=== PATIENT | male | born 1965 | race Caucasian/White ===

== ENCOUNTER 2021-06-09 09:47 | Emergency (ER) | payer MEDICARE, MEDICAID ==
[~2021-06-09] VITALS: Ht 182 cm; Wt 167.0 kg
[~2021-06-09 09:47] MED LIST: ACHD5005 PO
--- OUTSIDE RECORDS SUMMARY | 2021-06-09 09:51 | XMS REPORT | Clinical Summary ---
Author Author [facility] Organization [facility] Address Unknown Phone Unavailable Care Team Providers Care Tentering Machine Feeder Name Role Phone Eric Guillen DO PCP Allergies Not on File Medications Not on file Active Problems Not on file Social History Date Tobacco Use Types Packs/Day Years Used Never Assessed Sex Assigned at Date Recorded Not on file Last Filed Vital Signs Not on file Plan of Treatment Health Maintenance Due Date Last Done Comments Hepatitis C Screen 1965 Td/Tdap# 1965 COVID-19 Vaccine (1) 1976 Colorectal Screening via 2014 Colonoscopy Zoster Vaccine# (1 of 2) 2014 Influenza Vaccine (#1) 2021 Pneumococcal Vaccine: Aged Out No longer eligib le based on patient's age to Pediatrics (0 to 5 Years) complete this topic and At-Risk Patients (6 to 64 Years) Results Not on filefrom Last 3 Months Insurance Type Payer Benefit Subscriber ID Effective Phone Address Plan / Dates Group Indemnity OTHER GOVERNMENT [facility] [id number] 2021- HEALTH Present Chuy Tavarez Personal/F Self 1965 [address] [place] (Home) [place] [id number] Chuy Tavarez Personal/F Self 1965 [address] [place] ([place]) [place] [id number] Advance Directives For more information, please contact: [phone] 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
--- OUTSIDE RECORDS SUMMARY | 2021-06-09 09:51 | XMS REPORT | Encounter Summary ---
Author Author [facility] Organization [facility] Address Unknown Phone Unavailable Care Team Providers Care Dye Penetrant Testing Technician Name Role Phone No Pcp, Na PCP Unavailable Tony Ruiz MD 21 Encounter Details Care Team Description Date Type Department 05/05/2021 Documentation Imaging: [facility] [address] [place] [id number] Social History Date Tobacco Use Types Packs/Day Years Used Quit: 08/27/2012 Former Smoker Smokeless Tobacco: Never Used Sex Assigned at Date Recorded Not on file documented as of this encounter Functional Status Date of Assessment Functional Status Response 08/14/2019 Does the patient have a hearing impairment: No 08/14/2019 Does the patient have a visual impairment: Yes 08/14/2019 Does the patient have impaired ambulation: Yes 08/14/2019 Does the patient have an activity of daily living No (ADL) impairment: 08/14/2019 Does the patient have an instrumental activity of No daily living (IADL) impairment: Date of Assessment Cognitive Status Response 08/14/2019 Does the patient have a cognitive impairment: No documented as of this encounter Plan of Treatment Not on filedocumented as of this encounter Visit Diagnoses Not on filedocumented in this encounter Additional Health Concerns Assessment Noted Time A fall risk assessment has been completed for the pat ient 01/17/2021 12:48 PM CDT documented as of this encounter
--- OUTSIDE RECORDS SUMMARY | 2021-06-09 09:51 | XMS REPORT | Encounter Summary ---
Author Author [facility] Organization [facility] Address Unknown Phone Unavailable Care Team Providers Care Teacher Citizenship Name Role Phone No Pcp, Na PCP Unavailable Tony Ruiz MD 21 Encounter Details Care Team Description Date Type Department 05/18/2021 Travel Social History Date Tobacco Use Types Packs/Day Years Used Quit: 08/27/2012 Former Smoker Smokeless Tobacco: Never Used Sex Assigned at Date Recorded Not on file Date Recorded COVID-19 Exposure Response 05/18/2021 12:55 PM CDT In the last month, have you been in contact with No / Unsure someone who was confirmed or suspected to have Coronavirus / COVID-19? documented as of this encounter Functional Status [...]
--- OUTSIDE RECORDS SUMMARY | 2021-06-09 09:51 | XMS REPORT | Encounter Summary ---
Author Author [facility] Organization [facility] Address Unknown Phone Unavailable Care Team Providers Care Alarm Security Or Surveillance Monitor Name Role Phone No Pcp, Na PCP Unavailable Tony Ruiz MD 21 Reason for Referral * Radiology Services (Routine) Referred By Contact Referred To Contact Status Reason Specialty Diagnoses / Procedures Da Rome MD [address] [place] [phone] Nuclear Med [address] [place], [place] [address]y. [address], [address] [place] [address] Authorized Radiology Diagnoses Neuroendocrine cancer (HCC) P rocedures NM PET NEUROENDOCRINE Electronically signed by Da Rome MD at Reason for Visit * Radiology Services (Routine) Referred By Contact Referred To Contact Status Reason Specialty Diagnoses / Procedures Da Rome MD [address] [place] [phone] Nuclear Med [address] [place], [place] [address]y. Level 1, [address] [place] [address] Authorized Radiology Diagnoses Neuroendocrine cancer (HCC) P rocedures NM PET NEUROENDOCRINE Encounter Details Care Team Description Date Type Department Da Rome MD [address] [place] [phone] 05/18/2021 Hospital Imaging, Nuclear Encounter Medicine: [address], [address] [place] [address] Social History Date Tobacco Use Types Packs/Day [...] impairment: No documented as of this encounter Medications at Time of Discharge Start Date End Date Medication Sig Dispensed Refills acetaminophen (TYLENOL) Take 325 mg 0 325 mg tablet by mouth every 4 hours as needed for Pain. albuterol sulfate (PROAIR Inhale by 0 RESPICLICK) 90 mouth into mcg/actuation aerosol the lungs inhaler three times daily as needed. aspirin EC 81 mg tablet Take 81 mg by 0 mouth daily. Take with food. atorvastatin (LIPITOR) 40 Take 40 mg by 0 mg tablet mouth daily. bisacodyl (CORRECTOL PO) Take 5 mg by 0 mouth twice daily. blood sugar diagnostic Use 1 strip 0 test strip as directed as Needed. cetirizine (ZYRTEC) 10 mg Take 10 mg by 0 tablet mouth every morning. coal tar (THERA-GEL TP) Apply 0 topically to affected area. duloxetine DR (CYMBALTA) Take 60 mg by 0 60 mg capsule mouth daily. ERGOCALCIFEROL (VITAMIN Take 5,000 0 D2) PO Units by mouth every 7 days. furosemide (LASIX) 40 mg Take 40 mg by 0 tablet mouth every morning. insulin glargine (LANTUS) Inject under 0 100 unit/mL vial the skin daily. Inject 55 units subcutaneousl y twice a day insulin NPH (NOVOLIN N) Inject under 0 100 unit/mL injection the skin twice daily. levothyroxine (SYNTHROID) Take 75 mcg 0 75 mcg tablet by mouth daily 30 minutes before breakfast. LISINOPRIL PO Take 40 mg by 0 mouth daily. metformin HCl (METFORMIN Take 1,000 mg 0 PO) by mouth twice daily. polyethylene glycol 3350 Take 17 g by 0 (MIRALAX) 17 g packet mouth daily. spironolactone Take 25 mg by 0 (ALDACTONE) 25 mg tablet mouth daily. Take with food. documented as of this encounter Discharge Disposition Code Departure Means Destination Disposition Home Home or Self Care documented in this encounter Plan of Treatment Not on filedocumented as of this encounter Procedures Comments Procedure Name Priority Date/Time Associated Diag nosis [place] PET NEUROENDOCRINE Routine 05/18/2021 Neuroend ocrine cancer 3:01 PM CDT (HCC) documented in this encounter Results * [place] PET NEUROENDOCRINE (05/18/2021 3:01 PM CDT) Specimen Impressions Performed At 1. No significant change in the appea edgar of a large neuroendocrine tumor of [facility] the pancreatic tail. 2. Redemonstration of a small tracer avid hepatic segment 8 metastasis. 3. Development of 2 additional tracer avid foci in the liver, which may represent new foci of hepatic metastati c disease, though could be secondary to differences in technique given interval change in tracer since prior examination. 4. Development of at least 2 pulmonar y nodules without tracer avidity. 5. No significant change in bilateral 11th rib osseous metastases. Krenning score = 4 Approved by Amara Gill M.D. on 021 5:51 PM By my electronic signature, I attest th at I have personally reviewed the images for this examination and formulated the interpretations and opinions expressed in this report Finalized by Graham Armstrong M.D. on 7:56 AM. Dictated by Amara Gill M.D. on 05/18/2021 4:20 PM. Narrative Performed At NC PET NEUROENDOCRINE [facility] Radiopharmaceutical: 4.3 mCi Cu-64 Dota kumar IV. Clinical Indication: Neuroendocrine can cer. Pancreatic neuroendocrine tumor. Technique: PET imaging was performed fr om skull to thighs. Low dose non-contrast CT imaging was performed for attenuatio n correction and localization purposes. Comparison: PET/CT from 01/14/2021. FINDINGS: Head/Neck: No tracer avid lesion(s). Chest: Development of left upper lobe ( index 316 CT image 107) and right middle lobe (index [address] image 128) pulmo nary nodules without tracer avidity. Abdomen/Pelvis: Large tracer avid pancr eatic tail mass demonstrating a maximum SUV of 100 (index 5[address] image 170) . Redemonstration of a small tracer avid hepatic segment 8 lesion demonstrating a maximum SUV of 43.5 (index [address] image 146, previously 29.6. Development of 2 additional tracer avid foci in the liver (index [address] image 163) and (index [address] image 161). Osseous Structures: Persistent tracer a vid focus within the posterior left 11th rib demonstrating a maximum SUV of 75.1 (index [address] image 166). Redemonstration of a small tracer avid focus in the right lateral 11th rib (index 632 and CT image 190). Additional CT Findings: Mild coronary a rtery calcification. Probable diffuse hepatic steatosis. Lumbar spinal fixati on hardware. Procedure Note Interface, Radiant Results - 05/19/2021 7:59 AM CDT NM PET NEUROENDOCRINE Radiopharmaceutical: 4.3 mCi Cu-64 Dotatate IV. Clinical Indication: Neuroendocrine cancer. Pancreatic neuroendocrine tumor. Technique: PET imaging was performed from skull to thighs. Low dose non-contrast CT imaging was performed for attenuation correction and localization purposes. Comparison: PET/CT from 01/14/2021. FINDINGS: Head/Neck: No tracer avid lesion(s). Chest: Development of left upper lobe (index 316 CT image 107) and right middle lobe (index [address] image 128) pulmonary nodules without tracer avidity. Abdomen/Pelvis: Large tracer avid pancreatic tail mass demonstrating a maximum SUV of 100 (index 5[address] image 170). Redemonstration of a small tracer avid hepatic segment 8 lesion demonstrating a maximum SUV of 43.5 (index [address] image 146, previously 29.6. Development of 2 additional tracer avid foci in the liver (index [address] image 163) and (index [address] image 161). Osseous Structures: Persistent tracer avid focus within the posterior left 11th rib demonstrating a maximum SUV of 75.1 (index [address] image 166). Redemonstration of a small tracer avid focus in the right lateral 11th rib (index 6[address] image 190). Additional CT Findings: Mild coronary artery calcification. Probable diffuse hepatic steatosis. Lumbar spinal fixation hardware. IMPRESSION 1. No significant change in the appeara nce of a large neuroendocrine tumor of the pancreatic tail. 2. Redemonstration of a small tracer av id hepatic segment 8 metastasis. 3. Development of 2 additional tracer a vid foci in the liver, which may represent new foci of hepatic metastatic disease, though could be secondary to differences in technique given interval change in tracer since prior examination. 4. Development of at least 2 pulmonary nodules without tracer avidity. 5. No significant change in bilateral 1 1th rib osseous metastases. Krenning score = 4 Approved by Amara Gill M.D. on 05/18/2021 5:51 PM By my electronic signature, I attest that I have personally reviewed the images for this examination and formulated the interpretations and opinions expressed in this report Finalized by Graham Armstrong M.D. on 05/19/2021 7:56 AM. Dictated by Amara Gill M.D. on 05/18/2021 4:20 PM. Performing Organization Address City/State/ZIP Code P brynn Number [facility] documented in this encounter Visit Diagnoses Diagnosis Neuroendocrine cancer (HCC) Malignant poorly differentiated neuroen docrine carcinoma, any site documented in this encounter Administered Medications Action Date Dose Rate Site Medication Order MAR Action 05/18/2021 1:14 PM CDT 4.3 millicuries RP DX Cu-64 copper dotatate (DETECTNET) Given injection 4 millicurie 4 millicurie, Intravenous, ONCE, 1 dose , On Sun05/18/21 at 1330 documented in this encounter Orders First Ordered Date Medications Ordered That Might Not Have Count Last Ordered Date Been Administered RP DX Cu-64 copper dotatate (DETECTNET) 1 05/18/2021 injection 4 millicurie documented in this encounter Additional Health Concerns Assessment Noted Time A fall risk assessment has been completed for the pat ient 01/17/2021 12:48 PM CDT documented as of this encounter
--- OUTSIDE RECORDS SUMMARY | 2021-06-09 09:51 | XMS REPORT | Clinical Summary ---
Author Author [facility] Organization [facility] Address Unknown Phone Unavailable Care Team Providers Care Mica Paster Name Role Phone No Pcp, Na PCP Unavailable Tony Ruiz MD 21 Source Comments Some departments are not documenting in the electronic medical record. If you d o not see the information that you expected, contact Release of Information in [facility] [employer] Information Management department at [phone] for further assistan ce in locating additional records.[facility] Allergies No Known Active Allergies Medications End Date Status Medication Sig Dispensed Refills Start Date Active blood sugar diagnostic Use 1 strip 0 test strip as directed as Needed. Active aspirin EC 81 mg tablet Take 81 mg by 0 mouth daily. Take with food. Active atorvastatin (LIPITOR) 40 Take 40 mg by 0 mg tablet mouth daily. Active bisacodyl (CORRECTOL PO) Take 5 mg by 0 mouth twice daily. Active duloxetine DR (CYMBALTA) Take 60 mg by 0 60 mg capsule mouth daily. Active insulin glargine (LANTUS) Inject under 0 100 unit/mL vial the skin daily. Inject 55 units subcutaneousl y twice a day Active furosemide (LASIX) 40 mg Take 40 mg by 0 tablet mouth every morning. Active levothyroxine (SYNTHROID) Take 75 mcg 0 75 mcg tablet by mouth daily 30 minutes before breakfast. Active LISINOPRIL PO Take 40 mg by 0 mouth daily. Active metformin HCl (METFORMIN Take 1,000 mg 0 PO) by mouth twice daily. Active polyethylene glycol 3350 Take 17 g by 0 (MIRALAX) 17 g packet mouth daily. Active insulin NPH (NOVOLIN N) Inject under 0 100 unit/mL injection the skin twice daily. Active albuterol sulfate (PROAIR Inhale by 0 RESPICLICK) 90 mouth into mcg/actuation aerosol the lungs inhaler three times daily as needed. Active spironolactone Take 25 mg by 0 (ALDACTONE) 25 mg tablet mouth daily. Take with food. Active coal tar (THERA-GEL TP) Apply 0 topically to affected area. Active acetaminophen (TYLENOL) Take 325 mg 0 325 mg tablet by mouth every 4 hours as needed for Pain. Active ERGOCALCIFEROL (VITAMIN Take 5,000 0 D2) PO Units by mouth every 7 days. Active cetirizine (ZYRTEC) 10 mg Take 10 mg by 0 tablet mouth every morning. Active Problems Problem Noted Date Neuroendocrine cancer 09/22/2019 Encounters Care Team Description Date Type Specialty Da Rome MD 05/18/2021 Hospital Radiology Encounter 05/18/2021 Travel 05/05/2021 Documentation Radiology from Last 3 Months Immunizations Name Administration Dates Next Due Medical History Medical History Date Comments DM (diabetes mellitus) (HCC) HTN (hypertension) Family History Medical History Relation Name Comments Cancer Maternal Aunt brain tumor Relation Name Status Comments Maternal Aunt Social History Date Tobacco Use Types Packs/Day Years Used Quit: 08/27/2012 Former Smoker Smokeless Tobacco: Never Used Sex Assigned at Date Recorded Not on file Date Recorded COVID-19 Exposure Response 05/18/2021 12:55 PM CDT In the last month, have you been in contact with No / Unsure someone who was confirmed or suspected to have Coronavirus / COVID-19? Last Filed Vital Signs Reading Time Taken Comments Vital Sign 151/78 10/01/2019 4:11 PM HELICOPTER REPAIRER Blood Pressure 57 10/01/2019 4:11 PM HELICOPTER REPAIRER Pulse 36.8 C (98.3 F) 09/17/2019 9:25 AM HELICOPTER REPAIRER Temperature 20 10/01/2019 4:11 PM HELICOPTER REPAIRER Respiratory Rate 100% 10/01/2019 4:11 PM HELICOPTER REPAIRER Oxygen Saturation - - Inhaled Oxygen Concentration 156.6 kg (345 lb 3.2 oz) 10/01/2019 4:11 PM HELICOPTER REPAIRER Weight 183.5 cm (6' 0.24") 10/01/2019 4:11 PM HELICOPTER REPAIRER Height 46.5 10/01/2019 4:11 PM HELICOPTER REPAIRER Body Mass Index Plan of Treatment Health Maintenance Due Date Last Done Comments MEDICARE ANNUAL WELLNESS 1965 VISIT HIV SCREENING 01/01/1980 DTAP/TDAP VACCINES (1 - 1982 Tdap) HEPATITIS C SCREENING 1982 PHYSICAL (COMPREHENSIVE) 1982 EXAM COLORECTAL CANCER 2014 SCREENING SHINGLES RECOMBINANT 2014 VACCINE (1 of 2) INFLUENZA VACCINE 03/27/2021 COVID-19 VACCINE Completed 12/03/2020, 11/04/2020 Procedures Comments Procedure Name Priority Date/Time Associated Diag nosis [place] PET NEUROENDOCRINE Routine 05/18/2021 Neuroend ocrine cancer 3:01 PM CDT (HCC) from Last 3 Months Results * [place] PET NEUROENDOCRINE (05/18/2021 3:01 PM CDT) Specimen [...] on 05/18/2021 4:20 PM. 

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
[2021-06-09 10:00] VITALS: BP 141/81
[2021-06-09 10:38] LABS: BASOPHILS % (AUTO) 0 % (0-10); EOSINOPHILS # (AUTO) 0.2 10^3/uL (0.0-0.3); EOSINOPHILS % (AUTO) 2 % (0-10); HEMATOCRIT 23 % (40-54); HEMOGLOBIN 7.5 g/dL (13.3-17.7); LYMPHOCYTES # (AUTO) 0.9 10^3/uL (1.0-4.0); LYMPHOCYTES % (AUTO) 12 % (12-44); MEAN CORPUSCULAR HEMOGLOBIN 27 pg (25-34); MEAN CORPUSCULAR HGB CONC 32 g/dL (32-36); MEAN CORPUSCULAR VOLUME 84 fL (80-99); MEAN PLATELET VOLUME 10.6 fL (9.0-12.2); MONOCYTES # (AUTO) 0.5 10^3/uL (0.0-1.0); MONOCYTES % (AUTO) 7 % (0-12); NEUTROPHILS # (AUTO) 6.1 10^3/uL (1.8-7.8); NEUTROPHILS % (AUTO) 78 % (42-75); PLATELET COUNT 245 10^3/uL (130-400); WHITE BLOOD COUNT 7.8 10^3/uL (4.3-11.0)
--- NOTE | 2021-06-09 10:52 | Diagnostic Imaging Report ---
CLINICAL INDICATION: Patient with left knee pain and swelling. No known injury. Patient cannot bear weight. EXAM: X-ray of the left knee, three views. COMPARISON: None. FINDINGS: There is no acute lumbar spine fracture or dislocation. There is a left knee effusion and swelling adjacent to the left knee. There is hypertrophic patellar spur at the patellar ligament region adjacent to the tibial tuberosity in the region of the patellar ligament. There is hypertrophic spurring involving the tibial spine. There is also chronic calcification. There are small spurs involving the medial and lateral compartments. There is a sclerotic area across the tibial metaphysis which may be related to sclerosis of the physis. IMPRESSION: 1: There is no acute fracture or dislocation. 2: There is nonspecific left knee effusion and swelling about the knee. 3: There is degenerative disease, most pronounced involving the patella and tibial spine regions in the area of the patellar ligament, which may be from remote traumatic changes. Dictated by: Dictated on workstation # [id number]
[2021-06-09 10:54] LABS: ERYTHROCYTE SEDIMENTATION RATE > 140 MM/HR (0-30)
[2021-06-09 10:58] LABS: CALCIUM 7.3 MG/DL (8.5-10.1)
[2021-06-09 11:02] LABS: CREATININE SERUM 5.4 MG/DL (0.60-1.30)
[2021-06-09 11:05] LABS: URIC ACID 9.8 MG/DL (2.6-7.2)
[2021-06-09] MEDS ORDERED: COLCHICINE 0.6 MG (COLCRYS) TABLET PO STA (11:19)
[2021-06-09] MEDS ORDERED: LIDOCAINE 1% INJ 20 ML 20 ML VIAL ONE (11:56)
[2021-06-09] MEDS ORDERED: HYDROcodone/APAP 5 MG/325 MG (LORTAB) TAB ONE (12:43)
[2021-06-09] MEDS ORDERED: HYDROcodone/APAP 5 MG/325 MG (LORTAB) TAB PO ONE (12:45)
[2021-06-09] MEDS ORDERED: ONDANSETRON 4 MG (ZOFRAN) ORAL DISSOLVE TAB SL ONE (13:15)
[2021-06-09 13:32] LABS: BODY FLUID APPEARENCE MKD CLDY; BODY FLUID COLOR PALE YELLOW; BODY FLUID SOURCE SYNOVIAL
[2021-06-09 14:08] LABS: BODY FLUID RBC COUNT 100 /uL; BODY FLUID WBC TOTAL COUNT 12525 /uL
--- NOTE | 2021-06-09 14:11 | ED General ---
General Chief Complaint: Lower Extremity Stated Complaint: L KNEE SWOLLEN/HOT Nursing Triage Note: PT C/O LEFT KNEE PAIN X FEW WEEKS. REPORTS IT HIS HOT TO TOUCH AND PT IS UNABLE TO BEAR WEIGHT. DENIES FEVER OR ANY OTHER INJURY. Source of Information: Patient Exam Limitations: No Limitations History of Present Illness Date Seen by Provider: Jun 09, 2021 Time Seen by Provider: 10:00 Initial Comments This 55-year-old gentleman presents to the emergency room with complaints of left knee pain and swelling for 3 weeks, markedly worsening over the last 3 days. He denies any recent or prior traumatic injury. It is warm to the touch but he denies any fever. He has never had this problem before and denies any history of gout. He does have history of renal failure. He also takes oral chemo therapy medications for pancreatic cancer. He has been taking Tylenol for the pain which has not been effective. He is having extreme difficulty ambulating due to the pain. Allergies and Home Medications Allergies Coded Allergies: No Known Drug Allergies (Unverified , 05/01/20) Patient Home Medication List Home Medication List Reviewed: Yes Hydrocodone/Acetaminophen (Hydrocodone-Acetamin 5-325 mg) 1 Each Tablet, 1 EACH PO Q4-6 HOURS PRN for PAIN Prescribed by: AD MOODY on 05/01/20 309 Hydrocodone/Acetaminophen (Hydrocodone-Acetamin 5-325 mg) 1 Each Tablet, 0.5-1 TAB PO Q4H PRN for PAIN-MODERATE (5-7) Prescribed by: TAMIKA JOHNS on 06/09/21 1437 Review of Systems Review of Systems Constitutional: no symptoms reported EENTM: no symptoms reported Respiratory: no symptoms reported Cardiovascular: no symptoms reported Gastrointestinal: no symptoms reported Genitourinary: no symptoms reported Musculoskeletal: see HPI Skin: no symptoms reported Psychiatric/Neurological: No Symptoms Reported Hematologic/Lymphatic: No Symptoms Reported Immunological/Allergic: no symptoms reported Past Tmadxpc-Kkvtfh-Yuwalt Hx Patient Social History Tobacco Use?: Yes Tobacco type used: Cigarettes Smoking Status: Light Tobacco Smoker Substance use?: No Alcohol Use?: Yes Alcohol type: Beer Pt feels they are or have been: No Immunizations Up To Date Influenza Vaccine Up-to-Date: Yes; Up-to-Date Second COVID19 Vaccination Cliff: BOTH COVID19 Vaccine Kelp Gatherer: MODERNWendy Past Medical History Surgery/Hospitalization HX: IDDM, PANCREATIC CANCER Surgeries: Yes (LUMBAR SPINE SURGERY WITH HARDWARE) Orthopedic Respiratory: Yes Sleep Apnea Currently Using CPAP: Yes (BUT NOT ALL THE TIME) Currently Using BIPAP: No Cardiac: Yes High Cholesterol, Hypertension Neurological: No Genitourinary: Yes (CHRONIC RENAL FAILURE/INSUFFICIENCY) Renal Failure Gastrointestinal: Yes (PANCREATIC CANCER-STATES WAS DX IN HALF-WAY 04/2019) Musculoskeletal: Yes Chronic Back Pain Endocrine: Yes (MORBID OBESITY; IDDM) Diabetes, Insulin dep HEENT: No Cancer: Yes (DX 04/2019 WHILE IN HALF-WAY) Pancreatic Did You Recieve Any Treatments: Yes What Type of Treatment Did You: Chemotherapy Integumentary: No Blood Disorders: No Physical Exam Vital Signs Vital Signs - First Documented 06/09/21 10:00 Temp 37.4 Pulse 70 Resp 18 B/P (MAP) 141/81 (101) Pulse Ox 95 O2 Delivery Room Air Capillary Refill : Less Than 3 Seconds Height, Weight, BMI Height: '" Weight: lbs. oz. kg; 50.00 BMI Method: General Appearance: WD/WN, Moderate Distress, Obese HEENT: PERRL/EOMI, Normal ENT Inspection Neck: Normal Inspection Respiratory: Lungs Clear, Normal Breath Sounds, No Accessory Muscle Use Cardiovascular: Regular Rate, Rhythm, No Murmur Gastrointestinal: Non Tender, Soft Extremity: Other (Significant effusion about the left knee with warmth to the touch. No visible erythema. Significant pain with weightbearing and range of motion.) Neurologic/Psychiatric: Alert, Oriented x3, No Motor/Sensory Deficits, Normal Mood/Affect Skin: Normal Color, Warm/Dry Procedures/Interventions Patient Education: Explained Benefits, Explained Risks, Pt. Ack. Understanding Patient History: Heavy Snoring, Sleep Apnea Breath Sounds per Auscultation: Clear Heart Sounds per Auscultation: Regular Airway Exam: Mouth opens >2 fingers, Neck Full Range of Motion, Visulation of Uvula Arthrocentesis of the left knee Informed consent was obtained after discussing risks and benefits of arthrocentesis. Risks included bleeding, pain, and infection. Benefits included ability to alleviate pressure from the knee and evaluate synovial fluid by microscopy and culture. Patient agreed to the procedure. A superior lateral approach was used. Skin was indented with a hypodermic needle. Skin was cleaned with alcohol wipes and an insulin syringe was used to inject approximately 1 mL of lidocaine under the skin surface. Skin was then prepped with Betadine. Using sterile technique an 18-gauge needle was inserted into the joint space and approximately 110 mL of cloudy synovial fluid was aspirated from the joint. I continue to aspirate until no further fluid could be obtained. Patient tolerated the procedure well. Fluid was sent to the lab for analysis. Progress/Results/Core Measures Suspected Sepsis SIRS Temperature: Pulse: 70 Respiratory Rate: 18 Laboratory Tests 06/09/21 10:32: White Blood Count 7.8 Blood Pressure 141 /81 Mean: 101 Laboratory Tests 06/09/21 10:32: Creatinine 5.40H, Platelet Count 245 Results/Orders Lab Results Laboratory Tests Test 06/09/21 10:32 06/09/21 12:50 06/09/21 13:05 06/09/21 13:28 Range/Units White Blood Count 7.8 4.3-11.0 10^3/uL Red Blood Count 2.79 L 4.30-5.52 10^6/uL Hemoglobin 7.5 L 13.3-17.7 g/dL Hematocrit 23 L 40-54 % Mean Corpuscular Volume 84 80-99 fL Mean Corpuscular Hemoglobin 27 25-34 pg Mean Corpuscular Hemoglobin Concent 32 32-36 g/dL Red Cell Distribution Width 15.1 H 10.0-14.5 % Platelet Count 245 130-400 10^3/uL Mean Platelet Volume 10.6 9.0-12.2 fL Immature Granulocyte % (Auto) 1 % Neutrophils (%) (Auto) 78 H 42-75 % Lymphocytes (%) (Auto) 12 12-44 % Monocytes (%) (Auto) 7 0-12 % Eosinophils (%) (Auto) 2 0-10 % Basophils (%) (Auto) 0 0-10 % Neutrophils # (Auto) 6.1 1.8-7.8 10^3/uL Lymphocytes # (Auto) 0.9 L 1.0-4.0 10^3/uL Monocytes # (Auto) 0.5 0.0-1.0 10^3/uL Eosinophils # (Auto) 0.2 0.0-0.3 10^3/uL Basophils # (Auto) 0.0 0.0-0.1 10^3/uL Immature Granulocyte # (Auto) 0.0 0.0-0.1 10^3/uL Erythrocyte Sedimentation Rate > 140 H 0-30 MM/HR Sodium Level 140 135-145 MMOL/L Potassium Level 4.0 3.6-5.0 MMOL/L Chloride Level 108 H 98-107 MMOL/L Carbon Dioxide Level 15 L 21-32 MMOL/L Anion Gap 17 H 5-14 MMOL/L Blood Urea Nitrogen 54 H 7-18 MG/DL Creatinine 5.40 H 0.60-1.30 MG/DL Estimat Glomerular Filtration Rate 11 BUN/Creatinine Ratio 10 Glucose Level 81 70-105 MG/DL Uric Acid 9.8 H 2.6-7.2 MG/DL Calcium Level 7.3 L 8.5-10.1 MG/DL C-Reactive Protein High Sensitivity 3.84 H 0.00-0.50 MG/DL Body Fluid Source SYNOVIAL Body Fluid Color PALE YELLOW Body Fluid Appearance MKD CLDY Body Fluid WBC 54996 /uL Body Fluid RBC 100 /uL Body Fluid Polynuclear WBCs 96 % Body Fluid Mononuclear WBCs 0 % Body Fluid Lymphocytes 4 % Body Fluid Eosinophils 0 % Body Fluid Other Cells 0 % Body Fluid Crystals NOT SEEN Glucometer 37 *L 51 *L 70-110 MG/DL Test 06/09/21 14:11 Range/Units Glucometer 88 70-110 MG/DL My Orders Orders - TAMIKA BECKER MD Basic Metabolic Panel (06/09/21 10:08) Cbc With Automated Diff (06/09/21 10:08) Hs C Reactive Protein (06/09/21 10:08) Erythrocyte Sedimentation Rate (06/09/21 10:08) Uric Acid (06/09/21 10:08) Knee, Left, 3 Views (06/09/21 10:10) Colchicine Tablet (Colcrys Tablet) (06/09/21 11:19) Body Fluid Cell Count (06/09/21 11:41) Body Fluid Culture (06/09/21 11:41) Crystals,Body Fluid (06/09/21 11:41) Lidocaine 1% Inj 20 Ml (Xylocaine 1% Inj (06/09/21 11:56) Hydrocodone/Apap 5/325 Tablet (Lortab 5 (06/09/21 12:45) Hydrocodone/Apap 5/325 Tablet (Lortab 5 (06/09/21 12:43) Ondansetron Oral Dissolve Tab (Zofran (06/09/21 13:15) Accucheck Stat ONCE (06/09/21 13:01) Accucheck Stat ONCE (06/09/21 13:54) Accucheck Stat ONCE (06/09/21 13:54) Medications Given in ED Current Medications Medications Dose Ordered Sig/Zoe Route Start Time Stop Time Status Last Admin Dose Admin Acetaminophen/ Hydrocodone Bitart 1 ea ONCE ONCE PO 06/09/21 12:45 06/09/21 12:46 DC 06/09/21 12:47 1 EA Lidocaine HCl 20 ml STK-MED ONCE .ROUTE 06/09/21 11:56 06/09/21 11:59 DC 06/09/21 12:42 10 ML Vital Signs/I&O 06/09/21 10:00 Temp 37.4 Pulse 70 Resp 18 B/P (MAP) 141/81 (101) Pulse Ox 95 O2 Delivery Room Air Capillary Refill : Less Than 3 Seconds Blood Pressure Mean: 101 Progress Note : Progress Note Labs were obtained revealing elevated ESR and uric acid. Gout was suspected. Colchicine was given along with a dose of hydrocodone. I discussed risks and benefits of aspirating the knee. Patient agreed and arthrocentesis was p erformed yielding approximately 110 mL of cloudy synovial fluid. Fluid appeared aseptic by cell count and microscopy. No crystals were identified in the synovial fluid. The aseptic fluid without crystals would suggest the effusion was due to arthritic inflammation or some other type of inflammatory condition rather than gout or infection. Patient became hypoglycemic as he had not eaten prior to coming to the ER. His blood sugar was corrected with food and drink. On evaluation of his blood work I was concerned about his worsening renal function and anemia. This was discussed with Dr. Bertha Adames. She will follow up with him in the clinic. Patient has noted some dark stools recently but no viky melena or source of bleeding. See discharge instructions for further discussion. Diagnostic Imaging Diagonstic Imaging: Xray Plain Films/CT/US/NM/MRI: knee Comments NAME: DIANA NEGRON [facility] REC#: [id number] PT STATUS: REG ER : 1965 PHYSICIAN: TAMIKA BECKER MD ADMIT DATE: 06/09/21/ER Draft Date of Exam:06/09/21 KNEE, LEFT, 3 VIEWS CLINICAL INDICATION: Patient with left knee pain and swelling. No known injury. Patient cannot bear weight. EXAM: X-ray of the left knee, three views. COMPARISON: None. FINDINGS: There is no acute lumbar spine fracture or dislocation. There is a left knee effusion and swelling adjacent to the left knee. There is hypertrophic patellar spur at the patellar ligament region adjacent to the tibial tuberosity in the region of the patellar ligament. There is hypertrophic spurring involving the tibial spine. There is also chronic calcification. There are small spurs involving the medial and lateral compartments. There is a sclerotic area across the tibial metaphysis which may be related to sclerosis of the physis. IMPRESSION: 1: There is no acute fracture or dislocation. 2: There is nonspecific left knee effusion and swelling about the knee. 3: There is degenerative disease, most pronounced involving the patella and tibial spine regions in the area of the patellar ligament, which may be from remote traumatic changes. Dictated on workstation # [id number] Dict: 06/09/21 1044 Trans: 06/09/21 1051 [id number] Interpreted by: DYAN SHANKS MD Departure Impression Primary Impression: Effusion, left knee Additional Impressions: Left knee pain Qualified Codes: M25.562 - Pain in left knee Acute on chronic renal failure Anemia Qualified Codes: D64.9 - Anemia, unspecified Hypoglycemia Disposition: 01 HOME, SELF-CARE Condition: Improved Departure-Patient Inst. Decision time for Depature: 14:34 Ref[facility]: [facility] (PCP/Family) Primary Care Physician PHILIP SALINAS MD, TERRY D MD ZAFUTA, MICHAEL P MD Patient Instructions: Chronic Kidney Disease, Knee Pain Add. Discharge Instructions: Follow-up with your kidney specialist and your primary care provider soon as possible. Please call today to schedule appointments and arrange follow-up lab work. Drink plenty of water to stay well-hydrated. Elevation and compressive wrapping of your knee may be helpful in reducing pain and swelling. Use hydrocodone sparingly as prescribed for further treatment of the pain. It may be beneficial for you to see an rfid specialist. A list of orthopedists is provided below. Call with questions or concerns. Return to the ER if you have worsening symptoms. All discharge instructions reviewed with patient and/or family. Voiced understanding. Scripts Hydrocodone/Acetaminophen (Hydrocodone-Acetamin 5-325 mg) 1 Each Tablet 0.5-1 TAB PO Q4H PRN for PAIN-MODERATE (5-7), #20 TAB Prov: TAMIKA BECKER MD 06/09/21 Copy Copies To 1: KYARA UGALDE JOSHUA T MD Jun 09, 2021 14:11
[2021-06-09 14:16] LABS: BF OTHER CELLS 0 %; LYMPHOCYTES,BODY FLUID 4 %
[2021-06-09] MEDS ORDERED: ACHD5005 PO (14:37)
== END 2021-06-09 14:55 | disposition home or self-care (01) ==
LOC: EDUNIT# 09:47 → ER 09:48
DX: M25.462 Effusion, left knee (principal); E11.22 Type 2 diabetes mellitus with diabetic chronic kidney disease; I12.9 Hypertensive chronic kidney disease with stage 1 through stage 4 chronic kidney disease, or unspecified chronic kidney disease; N18.9 Chronic kidney disease, unspecified; E11.649 Type 2 diabetes mellitus with hypoglycemia without coma; D64.9 Anemia, unspecified; E66.01 Morbid (severe) obesity due to excess calories; G47.30 Sleep apnea, unspecified; G89.29 Other chronic pain; M54.9 Dorsalgia, unspecified; F17.210 Nicotine dependence, cigarettes, uncomplicated; Z68.43 Body mass index [BMI] 50.0-59.9, adult; Z79.891 Long term (current) use of opiate analgesic
CPT/HCPCS: 36415; 73562; 80048; 82947; 84550; 85025; 85652; 86141; 87070; 87205; 89051; 89060

== ENCOUNTER 2021-12-26 05:42 | Outpatient (CLI) | payer MEDICARE, MEDICAID ==
[~2021-12-26] VITALS: Ht 185.5 cm; Wt 162.7 kg
[2021-12-28] MEDS ORDERED: ATOR40TA70 PO (11:52)
[2021-12-28] MEDS ORDERED: ALB0.5V INH (11:52)
[2021-12-28] MEDS ORDERED: TORS20TA3 PO (12:05)
[2021-12-28] MEDS ORDERED: DULO60CA59 PO (12:05)
[2021-12-28] MEDS ORDERED: ACET325C7 PO (12:05)
[2021-12-28] MEDS ORDERED: HYDR-3924 PO (12:05)
[2021-12-28] MEDS ORDERED: LEVO75CA5 PO (12:05)
[2021-12-28] MEDS ORDERED: CETI10TA17 PO (12:05)
[2021-12-28] MEDS ORDERED: CARV25TA PO (12:05)
[2021-12-28] MEDS ORDERED: INSU100V42 SQ ×2 (12:05)
[2021-12-28] MEDS ORDERED: SPIR25TA PO (12:05)
[2021-12-28] MEDS ORDERED: VERA180T55 PO (12:05)
[2021-12-28] MEDS ORDERED: HYDR-700 PO (12:05)
[2021-12-28] MEDS ORDERED: CALC667T5 PO (12:05)
[2021-12-28] MEDS ORDERED: ERGO1250 PO (12:05)
[2021-12-28] MEDS ORDERED: ISOS30TA8 PO (12:05)
[2021-12-28] MEDS ORDERED: ASPI81TA16 PO (12:05)
[2021-12-30] MEDS ORDERED: ACHD5005 PO (12:19)
== END 2021-12-28 12:10 | disposition home or self-care (01) ==
LOC: PREOP 05:42
PROVIDERS: ATTEND Surgery
DX: Z01.818 Encounter for other preprocedural examination (principal)

== ENCOUNTER 2021-12-30 06:31 | Day surgery (SDC) | payer MEDICARE, MEDICAID ==
[~2021-12-30] VITALS: Ht 186 cm; Wt 162.7 kg
[2021-12-30] VITALS (11 sets, daily range): BP systolic 117–157; BP diastolic 65–91
[~2021-12-30 06:31] MED LIST changes: +ACET325C7 PO; +ALB0.5V INH; +ASPI81TA16 PO; +ATOR40TA70 PO; +CALC667T5 PO; +CARV25TA PO; +CETI10TA17 PO; +DULO60CA59 PO; +ERGO1250 PO; +HYDR-3924 PO; +HYDR-700 PO; +INSU100V42 SQ; +ISOS30TA8 PO; +LEVO75CA5 PO; +SPIR25TA PO; +TORS20TA3 PO; +VERA180T55 PO
[2021-12-30] MEDS ORDERED: fentaNYL INJ 100 MCG/2 ML AMP ONE (07:01)
[2021-12-30] MEDS ORDERED: ROCURONIUM 50 MG/5 ML (ZEMURON) VIAL IV ONE (07:01)
[2021-12-30] MEDS ORDERED: ONDANSETRON 4 MG/2 ML (SDV) Z0FRAN ONE (07:01)
[2021-12-30] MEDS ORDERED: proPOfol 200 MG/20 ML (DIPRIVAN) VIAL IV ONE (07:01)
[2021-12-30] MEDS ORDERED: LIDOCAINE PF 2% 5 ML (XYLOCAINE) VIAL ONE (07:01)
[2021-12-30] MEDS ORDERED: MIDAZOLAM 2 MG/2 ML (VERSED) VIAL ONE (07:01)
[2021-12-30] MEDS ORDERED: LIDOCAINE/EPI 2% 1:100,00 (XYLOCAINE) 20 ML VIAL ONE (07:21)
[2021-12-30] MEDS ORDERED: LACTATED RINGERS 1,000 ML IV PRN (07:30)
[2021-12-30] MEDS ORDERED: ceFAZolin INJECTION 3,000 MG in NS (IVPB) 100 ML IV ONE (07:30)
[2021-12-30] MEDS ORDERED: CISATRACURIUM 2MG/ML (NIMBEX) 10ML VIAL IV ONE (07:45)
[2021-12-30] MEDS ORDERED: HEParin (CENTRAL IV FLUSH) 500 UNIT/5 ML SYR ONE (08:02)
--- NOTE | 2021-12-30 08:09 | Progress Note-Pre Operative ---
Pre-Operative Progress Note H&P Reviewed The H&P was reviewed, patient examined and no changes noted. Date Seen by Provider: December 30, 2021 Time Seen by Provider: 08:09 Date H&P Reviewed: December 30, 2021 Time H&P Reviewed: 08:09 Pre-Operative Diagnosis: renal failure ROSE ALLISON DO December 30, 2021 08:09
[2021-12-30 08:14] LABS: CALCIUM 8.7 MG/DL (8.5-10.1); CREATININE SERUM 5.57 MG/DL (0.60-1.30); POTASSIUM 4.1 MMOL/L (3.6-5.0)
[2021-12-30] MEDS ORDERED: GLYCOPYRROLATE 0.2 MG/ML (ROBINUL) 2 ML VIAL ONE (09:27)
[2021-12-30] MEDS ORDERED: NEOSTIGMINE 3 MG/3 ML VIAL ONE (09:27)
[2021-12-30] MEDS ORDERED: SEVOFLURANE (ULTANE) 15 ML INHAL SOLN ONE (09:47)
[2021-12-30] MEDS ORDERED: fentaNYL INJ 100 MCG/2 ML AMP IVP ONE (10:15)
[2021-12-30] MEDS ORDERED: ONDANSETRON 4 MG/2 ML (SDV) Z0FRAN IVP PRN (10:15)
[2021-12-30] MEDS ORDERED: ACHD5005 PO (12:19)
--- NOTE | 2021-12-30 12:22 | Discharge Inst-Simple/Standard ---
Discharge Inst-Standard Discharge Medications New, Converted or Re-Newed RX: Transmitted to Pharmacy Patient Instructions/Follow Up Plan of Care/Instructions/FU: Need to see [facility] dialysis nurse on Sunday. No showering or soaking until then. You may do towel bath. [place]- 2 weeks. Activity as Tolerated: No Discharge Diet: Regular Diet Other Inst to Patient Follow up Appt: Make appointment for 2 week. Instructions: No lifting greater than 10 pounds. No strenuous activity. May shower in 24 hours, no tub bath or soaking. Use incentive spirometer at home as directed. No Smoking Skin/Wound Care: You have special glue over your incision that will fall off on it's own. Need to see [facility] dialysis nurse on Sunday. No showering or soaking until then. You may do towel bath. Symptoms to Report: Appetite Changes, Extremity Discoloration, Numbness/Tingling, Swelling Increased, Bleeding Excessive, Eyesight Changes, Pain Increased, Urine Color Change, Constipation(Persistent), Fever over 101 degree F, Pain/Pressure in chest, Urinating Difficulty, Cough Up/Vomit Blood, Heart Beat Irreg/Pounding, Pain/Pressure in jaw, Vaginal Bleeding Increase, Cramps in feet or legs, Lightheadedness, Pain/Pressure in shoulder, Diarrhea(Persistent), Memory Changes Suddenly, Questions/Concerns, Weight gain consecutive days, Dizziness/Fainting, Nausea/Vomiting, Shortness of Breath, Weight gain over 2 pounds If questions or concerns contact your physician Or seek help at emergency department. ROSE VALENCIA DO December 30, 2021 12:22
--- NOTE | 2021-12-30 14:55 | Anesthesia-General Post-Op ---
General Patient Condition Mental Status/LOC: Same as Preop Cardiovascular: Satisfactory Nausea/Vomiting: Absent Respiratory: Satisfactory Pain: Controlled Complications: Absent Post Op Complications Complications None Follow Up Care/Instructions Patient Instructions None needed. Anesthesia/Patient Condition Patient Condition Patient was doing well after the procedure with no complaints, stable vital signs, no apparent adverse anesthesia problems. ENRIQUE SIFUENTES DO December 30, 2021 14:55
--- NOTE | 2021-12-30 23:19 | OPERATIVE REPORT ---
DATE OF SERVICE: 12/30/2021 PREOPERATIVE DIAGNOSIS: Renal failure. POSTOPERATIVE DIAGNOSIS: Renal failure. PROCEDURE: Laparoscopic peritoneal dialysis catheter placement. SURGEON: Rose Valencia DO SILK CREPE MACHINE OPERATOR: Dr. Godoy, assisted in retraction, dissection and closure. ANESTHESIA: General. ESTIMATED BLOOD LOSS: Minimal. COMPLICATIONS: None. INDICATIONS: The patient is a 55-year-old male needing peritoneal dialysis and wishes to proceed with placement of peritoneal dialysis catheter. He understands risks and benefits of procedure and wishes to proceed. Consent was signed in the chart. DESCRIPTION OF PROCEDURE: The patient was taken to the operating suite, was prepped and draped in sterile fashion. Surgical pause was performed in the epigastric area midline. Local anesthetic was infiltrated. A #11 blade scalpel was used to make a small skin incision. Cautery was used to dissect down to the fascia, which was scored and divided, and the abdomen was entered. An 0 Vicryl was placed in a [id number] fashion for closure at the end of the case. The balloon trocar was inserted, and pneumoperitoneum was achieved. Under direct visualization of the laparoscope, an 8 mm robotic trocar was inserted into the left of the umbilicus and a 45-degree angle aiming down towards the pelvis. Once this was placed, the patient was placed in Trendelenburg, exposing the pelvis. Peritoneal dialysis catheter was then inserted down into the pelvis through the trocar and the stylet was removed as the catheter was advanced. The cuff was visualized within the abdomen. The trocar was removed. The catheter was then retracted back until the cuff was within the rectus muscle. This was then cut to length and stab incision was made in the left upper quadrant, which was then dissected down through. The catheter was cut to length and secured to the extension using the titanium connector, which was then also secured using 0 silk suture and then this was then tunneled up through the new stab incision. Using was exited on the left upper abdomen. The connector was then placed. The catheter was then flushed and reji saline without any difficulty. A 250 mL of saline was left down the pelvis for floating the catheter. The abdomen was then desufflated. The trocar was removed. The 0 Vicryl was then tied closing the 12 mm fascial defect. The skin incisions were closed using 4-0 Monocryl in a subcuticular fashion. Skin Affix was placed over the incisions. The patient tolerated procedure well without any complications. He was taken to recovery room in stable condition. Job ID: [id number] DocumentID: [id number] Dictated Date: 12/30/2021 16:30:25 Briar Cutter Date: 12/30/2021 23:19:03 Dictated By: ROSE VALENCIA DO
== END 2021-12-30 13:30 | disposition home or self-care (01) ==
LOC: SDC 06:31
PROVIDERS: ATTEND Surgery
DX: N18.6 End stage renal disease (principal); C7A.8 Other malignant neuroendocrine tumors; E66.01 Morbid (severe) obesity due to excess calories; G47.33 Obstructive sleep apnea (adult) (pediatric); F17.210 Nicotine dependence, cigarettes, uncomplicated; Z99.89 Dependence on other enabling machines and devices; Z68.42 Body mass index [BMI] 45.0-49.9, adult; Z99.2 Dependence on renal dialysis
CPT/HCPCS: 49324; 80048; 87081; C1750; 36415

== ENCOUNTER 2023-06-13 05:34 | Outpatient (CLI) | payer MEDICARE, MEDICAID ==
[~2023-06-13] VITALS: Ht 182.9 cm; Wt 123.4 kg
[2023-06-13] MEDS ORDERED: CALC0.5C11 PO (11:06)
[2023-06-13] MEDS ORDERED: QUET50TA23 PO (11:06)
[2023-06-13] MEDS ORDERED: SEVE800T13 PO (11:06)
[2023-06-13] MEDS ORDERED: DOCU-26 PO (11:06)
[2023-06-13] MEDS ORDERED: GLUC1AUT SQ (11:06)
[2023-06-13] MEDS ORDERED: ROPI1TAB46 PO (11:06)
[2023-06-13] MEDS ORDERED: OXYC10TA7 PO (11:06)
[2023-06-13] MEDS ORDERED: PROC10TA15 PO (11:06)
[2023-06-13] MEDS ORDERED: ISOS30TA8 PO (11:06)
[2023-06-13] MEDS ORDERED: MORPHINE 100MG/5ML PO (11:06)
[2023-06-13] MEDS ORDERED: LORA-404 PO (11:06)
== END 2023-06-13 11:38 | disposition home or self-care (01) ==
LOC: PREOP 05:34
PROVIDERS: ATTEND Surgery
DX: Z01.818 Encounter for other preprocedural examination (principal)

== ENCOUNTER 2023-06-20 06:57 | Day surgery (SDC) | payer MEDICARE, MEDICAID ==
[~2023-06-20] VITALS: Ht 182 cm; Wt 123.4 kg
[2023-06-20] VITALS (12 sets, daily range): BP systolic 95–166; BP diastolic 50–100
[~2023-06-20 06:57] MED LIST changes: +CALC0.5C11 PO; +DOCU-26 PO; +GLUC1AUT SQ; +LORA-404 PO; +MORPHINE 100MG/5ML PO; +OXYC10TA7 PO; +PROC10TA15 PO; +QUET50TA23 PO; +ROPI1TAB46 PO; +SEVE800T13 PO
[2023-06-20] MEDS ORDERED: LIDOCAINE 2% w/EPI 1:100,000 20 ML VIAL ONE (07:10)
[2023-06-20] MEDS ORDERED: ceFAZolin INJECTION 2,000 MG in NS (IVPB) 50 ML 50 ML IV ONE (07:15)
[2023-06-20] MEDS ORDERED: LACTATED RINGERS 1,000 ML 1,000 ML IV PRN (07:15)
--- NOTE | 2023-06-20 07:41 | Progress Note-Pre Operative ---
Pre-Operative Progress Note Date H&P Reviewed: Jun 20, 2023 Time H&P Reviewed: 07:41 History & Physical: H&P Reviewed, Patient Examed, No changes noted Pre-Operative Diagnosis: ESRD ROSE ALLISON DO Jun 20, 2023 07:41
[2023-06-20] MEDS ORDERED: NS IV 500 ML 500 ML ONE (07:45)
[2023-06-20 07:48] LABS: CALCIUM 11.1 MG/DL (8.5-10.1); CREATININE SERUM 9.2 MG/DL (0.60-1.30); POTASSIUM 3.8 MMOL/L (3.6-5.0)
[2023-06-20] MEDS ORDERED: NS IV 500 ML 500 ML IV ONE (08:00)
[2023-06-20] MEDS ORDERED: fentaNYL INJECTION 100 MCG/2 ML VIAL ONE (08:29)
[2023-06-20] MEDS ORDERED: LIDOCAINE 2% w/EPI 1:100,000 20 ML VIAL INJ ONE (09:07)
[2023-06-20] MEDS ORDERED: LIDOCAINE PF 2% 5 ML VIAL ONE (09:54)
[2023-06-20] MEDS ORDERED: ROCURONIUM 50 MG/5 ML VIAL IV ONE (09:54)
[2023-06-20] MEDS ORDERED: ONDANSETRON INJECTION 4 MG/2 ML (SDV) ONE (09:54)
[2023-06-20] MEDS ORDERED: SEVOFLURANE (ULTANE) 15 ML INHAL SOLN ONE (09:54)
[2023-06-20] MEDS ORDERED: proPOfol INJECTION 200 MG/20 ML VIAL IV ONE (09:54)
[2023-06-20] MEDS ORDERED: NEOSTIGMINE 1 MG/1ML 10 ML VIAL ONE (09:54)
[2023-06-20] MEDS ORDERED: GLYCOPYRROLATE INJ 0.2 MG/ML 2 ML VIAL ONE (09:54)
--- NOTE | 2023-06-20 10:17 | Anesthesia-General Post-Op ---
General Patient Condition Mental Status/LOC: Same as Preop Cardiovascular: Satisfactory Nausea/Vomiting: Absent Respiratory: Satisfactory Pain: Controlled Complications: Absent Post Op Complications Complications None Follow Up Care/Instructions Patient Instructions None needed. Anesthesia/Patient Condition Patient Condition Patient is doing well, no complaints, stable vital signs, no apparent adverse anesthesia problems. No complications reported per nursing. MCKENNA GRESHAM CRNA Jun 20, 2023 10:17
[2023-06-20] MEDS ORDERED: morphine INJ 10 MG/ML 1ML (SYR OR VIAL) IVP ONE (10:30)
[2023-06-20] MEDS ORDERED: ONDANSETRON INJECTION 4 MG/2 ML (SDV) IVP PRN (10:30)
[2023-06-20] MEDS ORDERED: fentaNYL INJECTION 100 MCG/2 ML VIAL IVP ONE (10:30)
--- NOTE | 2023-06-20 11:03 | Discharge Inst-Simple/Standard ---
Discharge Inst-Standard Patient Instructions/Follow Up Plan of Care/Instructions/FU: 2 weeks Annie. Let Dialysis center know your PD catheter has been replaced today. Irrigate and pack wound on left abdomen daily and as needed. Place sterile bandage over it. If you need help the office will help you. Activity as Tolerated: No Discharge Diet: Regular Diet Other Inst to Patient Follow up Appt: Make appointment for 2 week. Let dialysis center know peritoneal dialysis catheter has been replaced today. Instructions: No lifting greater than 10 pounds. No strenuous activity. May shower in 24 hours, no tub bath or soaking. Use incentive spirometer at home as directed. No Smoking Skin/Wound Care: You have special glue over your incision that will fall off on it's own. Irrigate and pack wound on left abdomen daily and as needed. Place sterile bandage over it. If you need help the office will help you. Symptoms to Report: Appetite Changes, Extremity Discoloration, Numbness/Tingling, Swelling Increased, Bleeding Excessive, Eyesight Changes, Pain Increased, Urine Color Change, Constipation(Persistent), Fever over 101 degree F, Pain/Pressure in chest, Urinating Difficulty, Cough Up/Vomit Blood, Heart Beat Irreg/Pounding, Pain/Pressure in jaw, Vaginal Bleeding Increase, Cramps in feet or legs, Lightheadedness, Pain/Pressure in shoulder, Diarrhea(Persistent), Memory Changes Suddenly, Questions/Concerns, Weight gain consecutive days, Dizziness/Fainting, Nausea/Vomiting, Shortness of Breath, Weight gain over 2 pounds If questions or concerns contact your physician Or seek help at emergency department. ROSE ALLISON DO Jun 20, 2023 11:03
--- NOTE | 2023-06-20 11:04 | Progress Note-Post Operative ---
Post-Operative Progess Note Surgeon (s)/Power Plant Operator (s) Surgeon ROSE ALLISON DO Power Plant Operator: na Pre-Operative Diagnosis ESRD Post-Operative Diagnosis same Procedure & Operative Findings Date of Procedure 06/20/23 Procedure Performed/Findings Laparoscopic removal and replacement of peritoneal dialysis catheter. Anesthesia Type general Estimated Blood Loss Estimated blood loss (mL): minimal Specimens/Packing Specimens Removed na ROSE ALLISON DO Jun 20, 2023 11:04
--- NOTE | 2023-06-21 01:58 | OPERATIVE REPORT ---
DATE OF SERVICE: 06/20/2023 PREOPERATIVE DIAGNOSIS: End stage renal disease. POSTOPERATIVE DIAGNOSIS: End stage renal disease. PROCEDURE: Laparoscopic removal and placement of peritoneal dialysis catheter. SURGEON: Rose Valencia DO ANESTHESIA: General. ESTIMATED BLOOD LOSS: Minimal. COMPLICATIONS: None. INDICATIONS: The patient is a 57-year-old male with peritoneal dialysis catheter. He had a dog pulled partially out, where the cuff is exposed. The patient needing removal and replacement. He understands risks and benefits and wished to proceed. Consent was signed in chart. DESCRIPTION OF PROCEDURE: The patient was taken to the operating suite, where he was prepped and draped in sterile fashion. Timeout was performed. Local anesthetic was infiltrated in the left upper quadrant. An 11 blade was used to make an incision. Cautery used to dissect down through the subcutaneous tissues to the anterior fascia, which was then scored. Muscles divided in the posterior fascia was opened. A rooney trocar was inserted and pneumoperitoneum was achieved. Under direct visualization of laparoscope, an 5 mm trocar was placed in the right side of the abdomen. The PD catheter was able to be visualized. No other pathology visualized within the abdomen. At this time, the peritoneal dialysis catheter, was then began to be dissected around, freeing it. An 11 blade scalpel was used to make an incision over the palpable area, where the second cuff was, small amount of fluid came from this area as well, but cautery was able to free up the catheter and the catheter continued to be tunneled down inferiorly. Where the original insertion point of the abdomen was, 11 blade scalpel was used to make a small skin incision. Cautery was used to dissect down to the catheter, grasped and elevated and the catheter was then able to be removed in its entirety. Where the 5 mm trocar was placed, the right lower quadrant 8 mm trocar was then inserted and angled towards the pelvis. A 62.5 cm peritoneal dialysis catheter was then inserted and the cuff was placed in the preperitoneal space. The trocar was removed prior to that. The catheter was then tunneled out laterally. This was then secured with a 0 silk suture. The 500 mL of saline was infused in the abdomen and drawn without difficulty and was left in for floating the catheter. The abdomen was then desufflated. The trocars were removed. The 12 mm fascial defect was then closed with 0 Vicryl [id number] fashion. All the other incisions were closed. The upper incision on the left, where the second cuff was, where a little bit of fluid came out, question if this was an abscess or sterile, so left it open and packed. Skin Affix was placed over the incisions that were closed with Monocryl. The patient tolerated the procedure well without any complications, taken to recovery room in stable condition. Job ID: [id number] DocumentID: [id number] Dictated Date: 06/20/2023 17:05:21 Bee Tender Date: 06/21/2023 01:56:00 Dictated By: ROSE VALENCIA DO
== END 2023-06-20 12:55 | disposition home or self-care (01) ==
LOC: SDC 06:57
PROVIDERS: ATTEND Surgery
DX: N18.6 End stage renal disease (principal); F17.210 Nicotine dependence, cigarettes, uncomplicated
CPT/HCPCS: 36415; 80048; 82947; 87081